=== PATIENT | male | born 1950 | race Caucasian/White ===

== ENCOUNTER → 2021-04-02 | Day surgery (SDC) | payer MEDICARE, OTHER ==
[~2021-04-02] VITALS: Ht 177.8 cm; Wt 88.5 kg
[~2021-04-02] MED LIST: AMLODIPINE BES2.5 MG PO; CELECOXIB200 MG PO; FAMOTIDINE40 MG PO; LOPRESSOR50 MG PO; MONTELUKAST SOD10 MG PO; OLMESARTAN MEDO20 MG PO; OMEPRAZOLE40 MG PO; TAMSULOSIN HCL0.4 MG PO
[2021-04-02 12:26] LABS: HCT 42.5 % (42.0-52.0); HGB 13.9 g/dl (13.2-18.0); MCH 29.4 pg (25.0-31.0); MCHC 32.7 g/dL (32.0-36.0); MPV 8.8 fL (6.0-9.5); RBC 4.72 M/uL (4.70-6.00); RDW 13.4 % (11.5-14.0); WBC 6.2 K/uL (4.0-10.5)
[2021-04-02 12:36] LABS: BUN/CREAT RATIO (CALC) 24.5 RATIO; CREATININE 1.02 mg/dL (0.67-1.17); POTASSIUM 4.3 mmol/L (3.5-5.1)
[2021-04-02 14:16] LABS: ALBUMIN 3.8 g/dL (3.4-5.0); BILIRUBIN - TOTAL 0.7 mg/dL (0.2-1.0); GLOBULIN (CALCULATION) 2.7 g/dL; TOTAL PROTEIN 6.5 g/dL (6.4-8.2)
== END | disposition home or self-care (01) ==
LOC: FAS 11:38
PROVIDERS: Anesthesiology; Legal Medicine
DX: M75.122 Complete rotator cuff tear or rupture of left shoulder, not specified as traumatic (principal); G56.02 Carpal tunnel syndrome, left upper limb; G89.18 Other acute postprocedural pain; M25.461 Effusion, right knee; I10 Essential (primary) hypertension; G47.30 Sleep apnea, unspecified; N40.0 Benign prostatic hyperplasia without lower urinary tract symptoms; M19.90 Unspecified osteoarthritis, unspecified site; K21.9 Gastro-esophageal reflux disease without esophagitis; Z88.8 Allergy status to other drugs, medicaments and biological substances; Z79.899 Other long term (current) drug therapy
CPT/HCPCS: 36415; 80048; 82040; 82247; 84075; 84155; 84450; 84460; 93005; C1713; J0171; J0690; J0735; J1100; J2250; J2370; J2405; J2704; J2795; J7120